=== PATIENT | male | born 1960 | race Caucasian/White ===

== ENCOUNTER → 2021-05-24 09:48 | Outpatient (CLI) | payer OTHER, SELFPAY ==
--- NOTE | 2021-06-17 13:53 | WPDSLEEPSTUD ---
Sleep Study Date of Study: 05/24/21 Ordering Provider: Nata Carreon, Interpreting Physician: Kat Romo MD Sleep Study Type: Split Polysomnogram Height: 1.85 m Weight: 140.6 kg Body Mass Index: 40.8 Neck Circumference (inches): 20 [place]: 16 Reason for Sleep Study Hypersomnolence Sleep History Luan Dennis is a 60 year old man with difficulty staying awake during the day. He has a diagnosis of obstructive sleep apnea however did not opt to use CPAP in the past. Now he wants to be treated. He is always tired. At night he tosses and turns constantly. He falls asleep quickly but says this is not deep sleep. This is been going on for at least 4 years. He had a home sleep test which showed severe sleep apnea. There is a family history with his brother having sleep apnea. The patient frequently awakens from sleep feeling short of breath. He does not have heartburn, belching or coughing at night. He constantly snores loudly. He does not have trouble sleeping with a cold. He occasionally wakes up gasping for breath at night. He frequently has breathing problems at night reported to him by others. He does not sweat excessively at night. He does not notice his heart pounding or beating irregularly at night. He constantly falls asleep in the day, involuntarily, as well as while driving. He does not have loss of muscle tone with strong emotion. He occasionally has daytime difficulties due to excessive sleepiness. He does not feel paralyzed on waking or falling asleep and does not have vivid dreamlike scenes upon awakening or falling asleep. He is not afraid to go to sleep. He does not have nightmares. He occasionally remembers his dreams. He does not have racing thoughts, does not have feelings of sadness or depression. He occasionally has anxiety. He does not have muscular tension. He frequently notices parts of his body jerking and he frequently kicks at night. He does not have crawling or aching feelings in his legs. He denies any kind of leg pain at night. He does not have morning jaw pain. He constantly grinds his teeth during sleep. He is not bothered by pain during the day nor awakened by pain during the night. He occasionally wakes up feeling stiff in the morning with sore achy muscles and pain in the neck and spine. He has sexual problems. he reports a 5 lb weight gain in the last year. Normal bedtime is 9:00 p.m. falling asleep within 5 minutes, typically waking 3-4 times at night to urinate. He is able to return to sleep within 5 minutes. He wakes the morning by 6:00 a.m.. He estimates getting 8-9 hours of sleep at night. His weekend schedule is the same. He takes naps However a short nap is not refreshing. He is usually drowsy in the morning for 3 hours or longer. He feels better in the evening compared to other times of day. Habits: He never smoked tobacco. Caffeine 4-5 servings of tea daily. No alcohol or recreational drugs. [facility] Past Medical History Medical History (Updated 06/17/21 @ 15:23 by Kat Romo MD) Smith's esophagus GERD (gastroesophageal reflux disease) Hyperlipidemia Hypertension Obstructive sleep apnea Family History Family History (Updated 06/17/21 @ 15:32 by Kat Romo MD) Sibling Obstructive sleep apnea Social History Social History (Updated 06/17/21 @ 15:25 by Kat Romo MD) Smoking status: Never smoker Alcohol intake: never Substance use: never Medications Medications: metoprolol succinate 50 mg a day lisinopril 12.5 mg a day omeprazole 20 mg a day aspirin 81 mg atorvastatin 10 mg a day Sleep Procedure This test was performed using the [employer] multiple channel system including EOG, EEG, submental EMG, EKG, nasal and oral airflow using thermistors and nasal pressure sensors, chest and abdominal belts for body position data, and pulse oximetry. Video monitoring was also performed. The study was scored using [facility] guidel
[2021-06-17 15:34] VITALS: BMI 40.8
== END ==
PROVIDERS: PCP Internal Medicine; Visit Provider Internal Medicine
DX: G47.33 Obstructive sleep apnea (adult) (pediatric) (principal); Z68.41 Body mass index [BMI] 40.0-44.9, adult
CPT/HCPCS: 95811